=== PATIENT | male | born 1940 | race Caucasian/White ===

== ENCOUNTER 2020-11-01 07:27 | Outpatient (CLI) | payer MEDICARE, BC, SELFPAY ==
--- NOTE | ~2020-11-01 | CT_ITS ---
EXAMINATION: CT BRAIN W/O DATE: 11/01/2020 08:27 INDICATION: Malignant neoplasm of the skin. TECHNIQUE: Computed tomography (CT) of the head was performed without and with 100 cc Omnipaque 350 i ntravenous contrast. The dose-length product was 1210.66 mGy-cm. Automated exposure control and itera tive reconstruction technique were employed. COMPARISON: No prior studies for comparison. FINDINGS: Normal brain parenchymal volume for age. Normal torres-white differentiation. No acute intrac ranial hemorrhage, infarction, mass or mass effect. There are scattered mild periventricular and subc ortical white matter changes, most likely related to small vessel ischemic disease (microangiopathy). No ventriculomegaly or midline shift. Midline sagittal images demonstrate a normal corpus callosum, c raniovertebral junction and sella turcica. Basilar cisterns are patent. There is mild mucosal thickening of the ethmoid and maxillary sinuses. Mastoids are pneumatized. No o steolytic or blastic lesions. IMPRESSION: 1. No acute intracranial abnormality. No evidence for metastases. Reviewed, dictated and finalized at location A.
--- NOTE | ~2020-11-01 | CT_ITS ---
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 TECHNIQUE: Spiral CT of the neck was performed following intravenous injection of 75 mL Omnipaque 350 . Axial, coronal and sagittal images were reviewed. The dose-length product (DLP) for this examinat ion was 542.63 mGy-cm. The exposure was tailored according to patient size (auto mA exposure control ), and iterative reconstruction (ASIR) was used as additional dose reduction technique. There is no prior study for comparison. FINDINGS: The thyroid gland is unremarkable. The submandibular and parotid glands are symmetric. There is no cervical lymphadenopathy. There are no masses identified. The superior mediastinum is unremarkable. The airway is unremarkable. Parapharyngeal and pre-glottic fat planes are preserve d. There is moderate left carotid bulb arterial sclerosis without significant stenosis, mild on the right. Vertebral arteries are codominant. Patient has had bilateral ocular lens surgery. Mild to moderate bilateral ethmoid sinus mucoperiosteal thickening. Small mucoperiosteal retention cysts in t he maxillary sinuses. The mastoid air cells are well aerated. Mild apical emphysema. There is severe disc disease at C5-6 with moderate to severe neural foraminal stenosis, and some advanced left-sided predominant facet arthropathy. IMPRESSION: 1. No evidence of cervical metastatic disease. 2. Chronic findings above. Reviewed, dictated and finalized at location A.
[2020-11-01 08:11] LABS: Estimated Glomerular Filt Rate > 60
== END 2020-11-01 07:28 | disposition home or self-care (01) ==
PROVIDERS: PCP Internal Medicine
DX: C44.90 Unspecified malignant neoplasm of skin, unspecified (principal); M47.812 Spondylosis without myelopathy or radiculopathy, cervical region; M48.02 Spinal stenosis, cervical region; I65.22 Occlusion and stenosis of left carotid artery
CPT/HCPCS: 70470; 70491; Q9967

== ENCOUNTER 2021-06-25 08:39 | Outpatient (CLI) | payer MEDICARE, BC, SELFPAY ==
--- NOTE | ~2021-06-25 | XR_ITS ---
XR UGIAC w barium swallow DATE: 06/25/2021 09:28 INDICATION: Heartburn, acid reflux TECHNIQUE: Air-contrast evaluation of the upper gastrointestinal tract. Rapid sequence radiographs of the esophagus during swallowing. 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 There is a very small sliding hiatal hernia with Schatzki's ring. No stricture, mucosal fold thickening, erosion, ulceration or intraluminal mass lesion of the esophag us, stomach or duodenum is noted otherwise. Status post cholecystectomy. IMPRESSION: Cricopharyngeus dysfunction with small Hook's diverticulum Small sliding hiatal hernia with Schatzki's ring Reviewed, dictated and finalized at Location A. Reviewed, dictated and finalized at location A. ULAR STUFFER
== END 2021-06-25 08:40 | disposition home or self-care (01) ==
LOC: ANHIMG 08:42
PROVIDERS: PCP Internal Medicine; Visit Provider Nurse Practitioner
DX: R12 Heartburn (principal); K22.5 Diverticulum of esophagus, acquired; K44.9 Diaphragmatic hernia without obstruction or gangrene
CPT/HCPCS: 74246

== ENCOUNTER 2021-07-06 09:46 | Outpatient (CLI) | payer MEDICARE, BC, SELFPAY ==
--- NOTE | ~2021-07-06 | XR_ITS ---
EXAMINATION: XR barium swallow modified DATE: 07/06/2021 10:43 INDICATION: Dyskinesia of the esophagus TECHNIQUE: Modified barium esophagram was performed by myself to administered fluoroscopy, in conjun ction with speech pathologist who administered barium in varying consistencies as per speech patholog ist documentation. This was recorded on tape. A single fluoroscopic spot image was recorded. The DAP for this procedure was 1.753 Gycm2. Fluoroscopy exposure time was 2.3 minutes. FINDINGS: Incidental note is made of a small posterior diverticulum of the cervical esophagus. Oral stage: Adequate function. Pharyngeal phase: Adequate function. Laryngeal penetration: None. Aspiration: None. Laryngeal sensitivity: Present. IMPRESSION: No functional abnormality identified. Please refer to speech pathologist findings and [facility] feeding recommendations. Reviewed, dictated and finalized at location A. T ADVISOR IMPRESSION: No functional abnormality identified. Please refer to speech pathol ogist findings and specific feeding recommendations.
--- NOTE | 2021-07-06 11:32 | STOPEVAL ---
MODIFIED BARIUM SWALLOW EVALUATION: Thank you for referring Catarino Lopes to [facility].? ORDERING PROVIDERS: Dr Fay & SCHEDULING ANALYST Amador Tejeda: FAX: [phone] Outpatient Past Medical History Past Medical History Source of Past Medical History Patient Gastrointestinal History Hx Gastroesophageal Reflux Disease Yes Prior Level of Function Prior Swallow Level Prior Intake Method Oral Prior Diet Regular (Level 7 Diet) Prior Liquid Consistency Thin (Level 0 Diet) Prior Cognition/Communication Prior Communication Level No Impairment Prior Cognitive Function Able to Function Independently Pain Assessment Timing of Pain Assessment Timing of Pain Assessment Assessment Self Report Self Report Pain Level 0 Pain Score Pain Score 0: Self Report Modified Barium Swallow Evaluation Recent Swallowing History Reports Dysphagia Yes Onset of Dysphagia 1 month ago History of Dysphagia No History of Pneumonia No Reported Difficult Consistencies Thin Liquids,Solids Intake Method Prior to Swallow Oral Evaluation Diet Prior to Swallow Evaluation Regular, Level 7 Liquid Consistency Prior to Swallow Thin (0) Evaluation Consistency Thin Uncontrolled 1 Other Amount cup and straw Oral Preparatory Symptoms None Oral Phase Symptoms None Pharyngeal Phase Symptoms None Severity of Vallecular Residue None - 0% No Residue Pharyngeal Phase Comments Vallecular residue was mild and cleared with multiple swallows. Cervical/Esophageal Phase Comments Small diverticulum was exhibited near level C6/7-- no retrograde flow and cleared with multiple swallows Solid Consistency Method of Presentation Spoon Oral Preparatory Symptoms None Oral Phase Symptoms None Pharyngeal Phase Symptoms Within Functional Limits, Residue in [place] Severity of Vallecular Residue Mild - 5-25 % Epiglottic Ligament Visable Severity of Pyriform Sinus Residue None - 0% No Residue 8 Point Laryngeal Penetration-Aspiration Material Does Not Enter Airway Scale Pharyngeal Phase Comments Vallecular residue was mild and cleared with multiple swallows. Cervical/Esophageal Phase Comments Small diverticulum was exhibited near level C6/7-- no retrograde flow and cleared with multiple swallows & liquid wash. Pureed Consistency Method of Presentation Spoon Oral Preparatory Symptoms None
== END 2021-07-06 09:47 | disposition home or self-care (01) ==
PROVIDERS: PCP Internal Medicine; Visit Provider Nurse Practitioner
DX: K22.4 Dyskinesia of esophagus (principal)
CPT/HCPCS: 92611

== ENCOUNTER 2021-10-11 16:55 | Emergency (ER) | payer MEDICARE, BC, SELFPAY ==
[2021-10-11 16:59] VITALS: BP 104/79; PULSE 62; RESP 16; TEMP 36.7; O2SAT 99
--- NOTE | 2021-10-11 17:02 | ED.WOUNDLAC ---
HPI - Wound/Laceration General Chief Complaint: Wound/Laceration Stated Complaint: L THUMB LACERATION Time Seen by Provider: 10/11/21 17:05 Source: patient Mode of arrival: ambulatory Limitations: no limitations History of Present Illness HPI narrative: Mr. Lopes is a 81-year-old male patient presenting to the clinic today with complaints of injury to the left thumb around 3:30 PM today. He reports he cut off the tip of his left thumb. He is on a blood thinner and is having difficulty controlling the bleeding. Cut his finger with a knife when he was cutting an onion. His tetanus status is up-to-date. Related Data Home Medications Medication Instructions Recorded Confirmed amlodipine 2.5 mg tablet 2.5 mg PO DAILY 08/17/19 09/24/21 xhbchfkf-kmt-tvhfv acid 300 1 tablet PO DAILY 08/31/20 09/24/21 mcg-lycopene 600 mcg-lutein 300 mcg tablet aspirin 81 mg tablet,delayed 81 mg PO DAILY 03/05/21 09/24/21 release rosuvastatin 20 mg PO DAILY 08/28/21 09/24/21 ticagrelor 90 mg tablet 90 mg PO Q12H 08/28/21 09/24/21 Allergies Allergy/AdvReac Type Severity Reaction Status Date / Time No Known Allergies Allergy Verified 10/11/21 17:02 Review of Systems Review of Systems: Pertinent positives per HPI. Patient denies any fever, chills, rash, headache, visual changes, dizziness, cough, runny nose, sore throat, shortness of breath, chest pain, palpitations, nausea, vomiting, diarrhea, constipation, abdominal pain, or any urinary issues. [facility] Surgical History Surgical History Stented coronary artery July 2021 Family History Family History Mother Patient's mother is in good health Hypertension Family history of arthritis Father Family history of kidney disease Patient's father is Family history of renal failure Cerebrovascular accident Sibling Malignant neoplasm of prostate Social History Social History Smoking packs per day: 1.5 Smoking cigarettes per day: 30.0 Years smoked: 25 Smoking pack-years: 37.50 Smoking status: Former smoker Tobacco type: cigarettes Second hand tobacco smoke exposure: Yes Smoking end date: 08/11/91 Alcohol intake: current Alcohol use details: 2 beers per month Substance use: never Exam Narrative: General: Well-developed, well nourished, in no apparent distress Cardio: Regular rate and rhythm, s1 and s2 normal, no murmur appreciated. Resp: Clear to auscultation bilaterally, no rhonchi, rales, wheezing or rubs. Integumentary: [place], warm, and dry, half-field avulsion laceration to the tip of the left thumb. Small amount of oozing blood noted to the wound. Avulsed skin coagulated and stuck to the wound bed. Nontender to palpation. No redness or swelling. Course Course Level of Care: Express Care Visit MDM - Wound/Laceration Differential Diagnosis Differential diagnosis: Likely laceration, abrasion and avulsion of skin Medical Records Attestation: I reviewed the patient's medical records. Discharge Plan Discharge Clinical Impression: Avulsion of skin Patient Disposition: Home, Self-Care Condition: Stable Additional Instructions: No need for suturing of laceration at this time. Bleeding is controlled. Wound was cleansed and tube gauze pressure dressing was applied in the clinic. Keep dressing on for 24 hours. After 24 hours may remove and wash thumb. Keep left hand elevated if bleeding occurs. Make use ice pack as needed to help control the bleeding. Avoid soaking left thumb. Watch for signs and symptoms of infection. Return to clinic or your PCP if symptoms persist. Prescriptions: No Action amlodipine 2.5 mg tablet 2.5 mg PO DAILY RF: 0 Centrum Silver Men 300-600-300 mcg tablet 1 tablet PO DAILY RF: 0 aspirin [Ad
== END 2021-10-11 17:23 | disposition home or self-care (01) ==
PROVIDERS: Emergency Provider Nurse Practitioner Family; PCP Internal Medicine
DX: S61.002A Unspecified open wound of left thumb without damage to nail, initial encounter (principal); W26.0XXA Contact with knife, initial encounter; Z79.01 Long term (current) use of anticoagulants; Z87.891 Personal history of nicotine dependence
CPT/HCPCS: 99212; G0463

== ENCOUNTER 2021-11-15 11:00 | Outpatient (RCR) | payer MEDICARE, BC, SELFPAY | END 2021-11-15 15:41 | disposition home or self-care (01) | LOC: ANHCPREHAB 11:00 | PROVIDERS: PCP Internal Medicine; Visit Provider Internal Medicine Cardiovascular Disease | DX: Z95.5 Presence of coronary angioplasty implant and graft (principal) | CPT/HCPCS: 93798 ==

== ENCOUNTER 2022-10-14 08:23 | Emergency (ER) | payer MEDICARE, BC, SELFPAY ==
--- NOTE | 2022-10-14 08:36 | ED.GENADULT ---
HPI - General Adult General Chief complaint: Unspecified Stated complaint: Dizziness/High BP/Abdominal Pain Time Seen by Provider: 10/14/22 08:37 Source: patient, RN notes reviewed and old records reviewed Mode of arrival: ambulatory Limitations: no limitations History of Present Illness HPI narrative: 82-year-old male presents to the [facility] with concerns for abdominal pain, dizziness, high blood pressure. Patient states yesterday morning he woke up dizzy but it went away, woke up again this morning dizzy with a pressure in the back of his head. Reports vomiting this morning. 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 States that he takes medication daily for blood pressure and cholesterol Patient denies any chest pain, shortness of breath Onset (ago): day(s) (1) Related Data Home Medications Medication Instructions Recorded Confirmed amlodipine 2.5 mg tablet 2.5 mg PO DAILY 08/17/19 10/08/22 khexrmgz-tkc-jfwds acid 300 1 tablet PO DAILY 08/31/20 10/08/22 mcg-lycopene 600 mcg-lutein 300 mcg tablet (Centrum Silver Men) aspirin 81 mg tablet,delayed 81 mg PO DAILY 03/05/21 10/08/22 release (Adult Low Dose Aspirin) rosuvastatin 20 mg tablet 20 mg PO DAILY 08/28/21 10/08/22 glucosamine 750 mg-msm 125 tablet PO 10/08/22 10/08/22 mg-chondroitin 600 mg-D3 1,000 unit tablet Allergies Allergy/AdvReac Type Severity Reaction Status Date / Time No Known Allergies Allergy Verified 10/14/22 08:48 Review of Systems Review of Systems: All systems reviewed & are unremarkable except as noted in HPI and below Constitutional: Constitutional: Reports no additional constitutional complaints Eyes: Eyes: Reports no additional eye complaints ENT: Reports system reviewed and no additional complaints, except as documented Cardiovascular: Cardiovascular: Reports no additional cardiovascular complaints, Denies chest pain and Denies dyspnea Respiratory: Respiratory: Reports no additional respiratory complaints, Denies chest congestion, Denies cough and Denies dyspnea Gastrointestinal: Gastrointestinal: Reports no additional gastrointestinal complaints, Denies abdominal pain, Denies nausea and Denies vomiting Musculoskeletal: Musculoskeletal: Reports no additional musculoskeletal complaints Integumentary/Breasts: Skin/Breast: Reports system reviewed and no additional complaints, except as docu Neurologic: Reports as per HPI, Denies Abnormal speech present, Denies abnormal gait and Reports dizziness Psychiatric: Psychiatric: Reports no additional psychiatric complaints Allergic/Immunologic: Allergic/Immunologic: Reports no additional allergic/immunologic complaints [facility] Past Medical History Medical History (Updated 10/14/22 @ 09:02 by Ruby Bill APRN) Essential (primary) hypertension History of high blood pressure Hyperlipidemia, unspecified Surgical History Surgical History (Updated 10/14/22 @ 09:00 by Ruby Bill APRN) Stented coronary artery July 2021 Family History Family History Mother Patient's mother is in good health Hypertension Family history of arthritis Father Family history of kidney disease Patient's father is Family history of renal failure Cerebrovascular accident Sibling Malignant neoplasm of prostate Social History Social History Smoking packs per day: 1.5 Smoking cigarettes per day: 30.0 Years smoked: 25 Smoking pack-years: 37.50 Smoking status: Former smoker Tobacco type: cigarettes Second hand tobacco smoke exposure: Yes Smoking end date: 08/11/91 Alcohol intake: current Alcohol use details: 2 beers per month Substance use: never Lack of Transportation: No Lack of Food: Never True Current Housing: I Have Housing Concerned About Future Housing: No Difficulty Paying Gas/Elect
[2022-10-14 08:38] VITALS: BP 140/65; PULSE 48; RESP 14; TEMP 36.4; O2SAT 100
--- NOTE | 2022-10-14 11:30 | ECG_ITS ---
Rate 50 RI 229 QRSd 158 QT 465 QTc 427 --[place]-- P 110 QRS -24 T 153 SINUS BRADYCARDIA WITH FIRST DEGREE AV BLOCK LEFT BUNDLE BRANCH BLOCK BASELINE ARTIFACT- I, II, III, AVR, AVL, V3-V4 ABNORMAL ECG NO PREVIOUS ECG AVAILABLE FOR COMPARISON Electronically Signed On 10-15-2022 8:45:36 MACHINE TRACER by Jean Paul ROCHE
--- NOTE | 2022-10-14 11:30 | ECG_ITS ---
Measurements Intervals [place] Rate: 59 P: ND: 0 QRS: -15 QRSD: 152 T: 148 QT: 440 QTc: 439 Interpretive Statements SINUS BRADYCARDIA WITH MARKED FIRST DEGREE AV BLOCK ATRIAL PREMATURE COMPLEX LEFT BUNDLE BRANCH BLOCK BASELINE ARTIFACT- I, II, III ABNORMAL ECG NO PREVIOUS ECG AVAILABLE FOR COMPARISON Electronically Signed On 10-14-2022 13:17:56 CAN RECONDITIONER by Jean Paul ROCHE
== END 2022-10-14 08:55 | disposition home or self-care (01) ==
PROVIDERS: Emergency Provider Nurse Practitioner; PCP Internal Medicine
DX: R42 Dizziness and giddiness (principal); I10 Essential (primary) hypertension; E78.5 Hyperlipidemia, unspecified; Z87.891 Personal history of nicotine dependence
CPT/HCPCS: 93005; 99213; G0463

== ENCOUNTER 2022-10-14 09:11 | Emergency (ER) | payer MEDICARE, BC, SELFPAY ==
--- NOTE | ~2022-10-14 | CT_ITS ---
EXAMINATION: CT brain wo con DATE: 10/14/2022 12:59 INDICATION: Headache, dizziness for one day. Posterior neck stiffness. TECHNIQUE: Computed tomography (CT) of the head was performed without intravenous contrast. The mA wa s adjusted according to patient size. Iterative reconstruction technique was employed. Exam dose: 60 5.33 mGy-cm total exam DLP. COMPARISON: 10/28/2020 CT brain without and with IV contrast material FINDINGS: Bilateral vertebral and basilar artery calcification. Bilateral carotid siphon internal car otid artery calcifications. There is nonspecific diminished attenuation of the cerebral white matter, likely due to chronic small vessel ischemic changes. No intracranial mass lesion or hemorrhage or cerebrovascular accident is evident. No midline shift or mass effect. No subdural or epidural hematoma. Patchy soft tissue opacification of bilateral ethmoid air cells. Small mucous retention cyst or polyp in the posterior left maxillary sinus. Minimal mucoperiosteal thickening of the right maxillary and sphenoid sinuses, left frontal sinus. The mastoid air cells are normally developed and aerated bilaterally. No fracture or bone destruction of the cranial vault. IMPRESSION: Cerebral atherosclerosis and chronic small vessel ischemic changes of the cerebral white matter; no acute intracranial finding Reviewed, dictated and finalized at Location A. Reviewed, dictated and finalized at location B. BORER
--- NOTE | ~2022-10-14 | XR_ITS ---
EXAMINATION: XR chest 1V portable DATE: 10/14/2022 13:07 INDICATION: Intermittent weakness. Dizziness. TECHNIQUE: A single frontal view of the chest was obtained on 2 radiographs. COMPARISON: CT abdomen and pelvis 11/21/2014 FINDINGS: There is mild atelectasis in right lower lung zone. No pleural effusion or pneumothorax. Ca rdiomegaly is noted. IMPRESSION: 1. Mild atelectasis in right lower lung zone. 2. Cardiomegaly. Reviewed, dictated and finalized at location A. ERN ROOM OPERATOR
--- NOTE | ~2022-10-14 | CT_ITS ---
EXAMINATION: CT cervical spine wo con DATE: 10/14/2022 12:59 INDICATION: Neck pain. TECHNIQUE: Computed tomography (CT) of the cervical spine was performed without intravenous contrast. Automated exposure control and iterative reconstruction technique were employed. The dose-length pro duct was 240.27 mGy-cm. COMPARISON: None FINDINGS: There is mild emphysema. There is 2 mm anterolisthesis of C3 on C4 and C6 on C7. Vertebral body heights are normal. There is severely decreased disc height at C5-C6. The following disc levels are specifically discussed: C2-C3: There is mild bilateral uncovertebral joint osteoarthritis. There is moderate right and severe left facet joint osteoarthritis. There is mild left neural foraminal stenosis. There is no central c anal stenosis. C3-C4: There is mild right and severe left uncovertebral joint osteoarthritis. There is severe bilate ral facet joint osteoarthritis. There is mild right and moderate left neural foraminal stenosis. Ther e is mild central canal stenosis. C4-C5: There is mild bilateral uncovertebral joint osteoarthritis. There is severe bilateral facet subhash int osteoarthritis. There is mild left neural foraminal stenosis. There is mild central canal stenosi s. C5-C6: There is severe bilateral uncovertebral joint osteoarthritis. There is moderate bilateral face t joint osteoarthritis. There is mild bilateral neural foraminal stenosis. There is mild central vannesa l stenosis. C6-C7: There is mild right and severe left uncovertebral joint osteoarthritis. There is severe bilate ral facet joint osteoarthritis. There is mild left neural foraminal stenosis. There is mild central c anal stenosis. C7-T1: There is mild bilateral uncovertebral joint osteoarthritis. There is mild bilateral facet join t osteoarthritis. There is no neural foraminal stenosis. There is no central canal stenosis. IMPRESSION: 1. No fracture. 2. Severe cervical spondylosis. Reviewed, dictated and finalized at location A. CASE MAKER
[2022-10-14 09:27] VITALS: BP 144/74; PULSE 74; RESP 16; TEMP 36.6; O2SAT 100
--- NOTE | 2022-10-14 12:26 | ECG_ITS ---
Measurements Intervals [place] Rate: 59 P: SC: 0 QRS: -15 QRSD: 152 T: 148 QT: 440 QTc: 439 Interpretive Statements SINUS BRADYCARDIA WITH MARKED FIRST DEGREE AV BLOCK ATRIAL PREMATURE COMPLEX LEFT BUNDLE BRANCH BLOCK BASELINE ARTIFACT- I, II, III ABNORMAL ECG NO PREVIOUS ECG AVAILABLE FOR COMPARISON Electronically Signed On 10-14-2022 13:17:56 IT QUALITY ANALYST by Jean Paul ROCHE
[2022-10-14 12:52] LABS: Basophils Percent Auto 0.5 % (0.2-1.2); Eosinophils Absolute Auto 0.2 K/mm3 (0-0.3); Eosinophils Percent Auto 2.2 % (0-4.4); Hematocrit 48.3 % (42.0-52.0); Hemoglobin 16.3 g/dL (14.0-18.0); Immature Granulocyte Absolute 0.03 K/mm3 (0.00-0.031); Immature Granulocyte Percent A 0.3 % (0-0.5); Lymphocytes Absolute Auto 1.19 K/mm3 (0.9-3.2); Lymphocytes Percent Auto 13.5 % (18.3-44.2); Mean Corpuscular HGB Conc 33.7 g/dl (32-36); Mean Corpuscular Hemoglobin 31.8 pg (26-34); Mean Corpuscular Volume 94.2 fl (80-100); Mean Platelet Volume 10.9 fl (7.4-10.4); Monocytes Absolute Auto 0.2 K/mm3 (0.1-0.6); Monocytes Percent Auto 2.6 % (2.6-8.5); Neutrophils Absolute Auto 7.1 K/mm3 (1.3-6.7); Neutrophils Percent Auto 80.9 % (45.5-73.1); Platelet Count Result 185 k/mm3 (150-375); Red Blood Count 5.13 M/mm3 (4.6-6.20); Red Cell Distribution Width 12.8 % (11.5-14.5); White Blood Count 8.8 K/mm3 (4.5-10.0)
[2022-10-14 12:55] LABS: Appearance Urine Cloudy (Clear); Bacteria Urine None Seen /hpf; Bilirubin Urine Negative (Negative); Blood Urine Negative (Negative); Color Urine Yellow (Yellow); Glucose Urine UA Negative (Negative); Ketones Urine Negative (Negative); Leukocyte Esterase Ur Negative LEU/UL (Negative); Nitrate Urine Negative (Negative); Non Pathogenic Casts 0-2; Protein Urine Negative (Negative); RBC Urine 0-2 /hpf (0-2); Specific Grav Ur 1.015 (1.001-1.035); Squamous Epithelial Cell Urine None seen /hpf (Few); Urobilinogen Urine 0.2 mg/dL (<2.0); WBC Urine 0-5 /hpf
[2022-10-14 13:01] LABS: INR 1.1; Prothrombin Time 13.5 Seconds (11.1-14.7)
[2022-10-14 13:02] LABS: Partial Thromboplastin Time 33.6 SECONDS (22.3-36.8)
[2022-10-14 13:03] LABS: Alanine Aminotransferase 46 U/L (6-50); Albumin Level 5.3 g/dL (3.5-5.1); Alkaline Phosphatase 62 U/L (38-126); Anion Gap 8 mmol/L (8-16); Aspartate Amino Transferase 38 U/L (17-59); Bilirubin,Total 1.2 mg/dL (0.2-1.3); Blood Urea Nitrogen 19 mg/dL (9-20); Calcium 9.3 mg/dL (8.4-10.2); Carbon Dioxide 32 mmol/L (22-30); Chloride 103 mmol/L (98-107); Estimated CRCL calculation 77 ml/min; Estimated Glomerular Filt Rate > 60; Glucose 105 mg/dL (65-110); Magnesium 2.4 mg/dL (1.6-2.3); Potassium 3.9 mmol/L (3.4-5.0); Sodium 143 mmol/L (137-145)
--- NOTE | 2022-10-14 13:12 | ED.DIZZY ---
HPI - Dizziness General Chief Complaint: Dizziness Stated Complaint: dizziness since yesterday morning Time Seen by Provider: 10/14/22 12:14 Source: patient, RN notes reviewed and old records reviewed Mode of arrival: ambulatory Limitations: no limitations History of Present Illness HPI Narrative: This is an 82 year old male with history of hypertension, CAD, s/p stent who presents for evaluation of dizziness. Patient reports he has had cold symptoms since Friday. He reports nasal congestion. Yesterday he noticed dizziness, room spinning when he got up yesterday morning. He reports his symptoms only last minutes and it resolved. He developed dizziness, spinning again this morning and he states it has not resolved. He also reports mild dull aching headache located posterior and frontal. He reports he fell last week and he has had neck pain/ stiffness since that fall, but he denies hitting his head. He had an episode of nausea and vomiting this morning with his dizziness. He denies ringing in his ears or ear ache. He denies fever or chills. His states she is worried patient is having a heart attack because she had a friend that presented with vomiting and she had a heart attack. Patient denies chest pain, sob or palpitations. He states he had stent placed because he had shortness of breath with exertion at that time but he is not having similar symptoms today. 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 He denies diplopia, focal weakness, numbness or tingling. Related Data Home Medications Medication Instructions Recorded Confirmed amlodipine 2.5 mg tablet 2.5 mg PO DAILY 08/17/19 10/14/22 juedszmu-ziu-mfskg acid 300 1 tablet PO DAILY 08/31/20 10/14/22 mcg-lycopene 600 mcg-lutein 300 mcg tablet (Centrum Silver Men) aspirin 81 mg tablet,delayed 81 mg PO DAILY 03/05/21 10/14/22 release (Adult Low Dose Aspirin) rosuvastatin 20 mg tablet 20 mg PO DAILY 08/28/21 10/14/22 glucosamine 750 mg-msm 125 1 tablet PO DAILY 10/08/22 10/14/22 mg-chondroitin 600 mg-D3 1,000 unit tablet Allergies Allergy/AdvReac Type Severity Reaction Status Date / Time No Known Allergies Allergy Verified 10/14/22 08:48 Review of Systems Constitutional: Constitutional: Denies weakness ENT: Reports vertigo and Reports nasal congestion Cardiovascular: Cardiovascular: Denies syncope, Denies rapid heart rate, Denies irregular heart rhythm, Denies leg edema and Denies dyspnea Respiratory: Respiratory: Denies chest congestion, Denies hemoptysis, Denies excessive phlegm production and Denies dyspnea Gastrointestinal: Gastrointestinal: Denies abdominal pain, Denies hematochezia, Denies diarrhea, Reports nausea and Reports vomiting Genitourinary: Genitourinary: Denies hematuria, Denies dysuria, Denies penile discharge and Denies testicular pain Musculoskeletal: Musculoskeletal: Denies joint swelling, Denies loss of height and Denies muscle weakness Neurologic: Reports vertigo, Denies syncope, Reports headache(s), Denies focal weakness and Denies weakness PMFSH Past Medical History Medical History (Updated 10/14/22 @ 14:40 by Annmarie Ambriz MD) Essential (primary) hypertension History of high blood pressure Hyperlipidemia, unspecified Surgical History Surgical History (Updated 10/14/22 @ 09:00 by Ruby Bill APRN) Stented coronary artery July 2021 Family History Family History Mother Patient's mother is in good health Hypertension Family history of arthritis Father Family history of kidney disease Patient's father is Family history of renal failure Cerebrovascular accident Sibling Malignant neoplasm of prostate Social History Social History Smoking packs per day: 1.5 Smoking cigarettes per day: 30.0 Years smoked: 25 Smoking pack-years: 37.50 Smoking status: Former smok
[2022-10-14 13:14] LABS: Troponin I < 0.012 ng/mL (0.000-0.034)
[2022-10-14 13:23] LABS: Add Urine Microscopic? YES
[2022-10-14 13:25] LABS: Influenza A QL RT-PCR Negative (Negative); Influenza B QL RT-PCR Negative (Negative); SARS-CoV-2 RNA PCR Negative
[2022-10-14] MEDS: MECLIZINE HCL 12.5 MG TABLET PO (13:36)
[2022-10-14] MEDS: ONDANSETRON INJ 4 MG/2 ML VIAL IV PUSH (13:36)
[2022-10-14 14:20] VITALS: BP 130/69; BP 141/82; BP 143/76; PULSE 50; PULSE 56; PULSE 60
== END 2022-10-14 15:12 | disposition home or self-care (01) ==
PROVIDERS: Emergency Provider General Practice; PCP Internal Medicine
DX: J06.9 Acute upper respiratory infection, unspecified (principal); R42 Dizziness and giddiness; I10 Essential (primary) hypertension; E78.5 Hyperlipidemia, unspecified; M47.812 Spondylosis without myelopathy or radiculopathy, cervical region; I44.7 Left bundle-branch block, unspecified; Z87.891 Personal history of nicotine dependence; Z79.82 Long term (current) use of aspirin; Z95.5 Presence of coronary angioplasty implant and graft; Z20.822 Contact with and (suspected) exposure to COVID-19
CPT/HCPCS: 36415; 70450; 71045; 72125; 80053; 81001; 81003; 83735; 84484; 85025; 85610; 85730; 87636; 93005; 96374; 99284; A9270; J2405

== ENCOUNTER 2023-08-20 10:27 | Outpatient (CLI) | payer MEDICARE, BC, SELFPAY ==
--- NOTE | ~2023-08-20 | XR_ITS ---
XR lumbar spine 2-3V DATE: 08/20/2023 10:49 INDICATION: Right low back pain, right lower extremity radiculopathy TECHNIQUE: Standing AP, lateral and coned lateral lumbosacral views COMPARISON: None FINDINGS: There is mild lumbar dextroscoliosis. There is moderate to moderately severe degenerative disc disease of the lumbar spine, relatively spar ing L5-S1. No fracture or bone destruction. The included lower thoracic and lumbar pedicles are intact. No spond ylolisthesis. The sacroiliac joints are intact. Status post cholecystectomy. Prominent abdominal aortic calcification without evidence of aneurysm. IMPRESSION: Moderate to moderately severe degenerative disease of the lumbar spine, relatively sparin g L5-S1 Reviewed, dictated and finalized at location B. BOX OPERATOR IMPRESSION: Moderate to moderately severe degenerative disease of the lumbar sp ine, relatively sparing L5-S1
== END 2023-08-20 10:28 | disposition home or self-care (01) ==
PROVIDERS: PCP Family Medicine; Visit Provider Family Medicine
DX: M51.36 Other intervertebral disc degeneration, lumbar region (principal)
CPT/HCPCS: 72100

== ENCOUNTER 2023-10-02 07:51 | Outpatient (CLI) | payer MEDICARE, BC, SELFPAY | END 2023-10-02 07:52 | disposition home or self-care (01) | LOC: ANHAUDIO 07:52 | PROVIDERS: PCP Family Medicine; Visit Provider Family Medicine | DX: H90.3 Sensorineural hearing loss, bilateral (principal) | CPT/HCPCS: 92557; 92567 ==

== ENCOUNTER 2023-10-23 10:20 | Outpatient (CLI) | payer MEDICARE, BC, SELFPAY ==
--- NOTE | ~2023-10-23 | XR_ITS ---
AP and lateral views of the right tibia/fibula Clinical History: Pain Findings: No acute fracture or dislocation is seen. Osseous alignment is anatomic. Right knee arthrop lasty in place, without evidence of a convocation. Joint spaces of the ankle are intact.. Soft tissue s are unremarkable. Impression: No acute abnormality. Right knee arthroplasty. Reviewed, dictated and finalized at location . Impression: No acute abnormality. Right knee arthroplasty.
--- NOTE | ~2023-10-23 | XR_ITS ---
Right Knee Technique: AP, lateral, and sunrise views were obtained. Clinical History: Pain Findings: No fracture or dislocation is seen. Right hip arthroplasty in place, without evidence of shin rdware complication. Soft tissues are unremarkable. No joint effusion is seen. Impression: No acute abnormality. Right knee arthroplasty. Reviewed, dictated and finalized at location . Impression: No acute abnormality. Right knee arthroplasty.
== END 2023-10-23 10:21 | disposition home or self-care (01) ==
LOC: ANHIMG 10:21
PROVIDERS: PCP Family Medicine; Visit Provider Family Medicine
DX: M89.8X6 Other specified disorders of bone, lower leg (principal); M25.561 Pain in right knee
CPT/HCPCS: 73562; 73590

== ENCOUNTER 2024-08-05 09:01 | Emergency (ER) | payer MEDICARE, BC, SELFPAY ==
[2024-08-05 09:08] VITALS: BP 144/79; PULSE 56; RESP 16; TEMP 36.6; O2SAT 100
[2024-08-05 09:27] LABS: EDSTREPNEGPOS1 Negative (Negative)
--- NOTE | 2024-08-05 09:32 | ED_ITS ---
HPI - URI/Sore Throat General Chief Complaint: Upper Respiratory Infection Stated Complaint: sorethroat Time Seen by Provider: 08/05/24 09:32 Source: patient, RN notes reviewed and old records reviewed Mode of arrival: ambulatory Limitations: no limitations History of Present Illness HPI Narrative: 84-year-old male presents to the [facility] with complaints of a sore throat. Patient states sore throat started Friday, reports swollen glands. States 3 weeks ago he had some sinus issues that has resolved. Pain increased over night. Treatments prior to arrival: other (An aspirin) Related Data Home Medications ?Medication ?Instructions ?Recorded ?Confirmed ?Last Taken ?Type amlodipine 2.5 mg tablet 2.5 mg PO DAILY 08/17/19 08/05/24 Unknown History xezvkjwx-sk-hcosh 300 mcg-K 60 1 tablet PO DAILY 08/31/20 08/05/24 Unknown History mcg-lycop 600 mcg-lutein 300 mcg tablet (Centrum Silver Men) aspirin 81 mg tablet,delayed 81 mg PO DAILY 03/05/21 08/05/24 Unknown History release (Adult Low Dose Aspirin) rosuvastatin 20 mg tablet 20 mg PO DAILY 08/28/21 08/05/24 Unknown History Allergies Allergy/AdvReac Type Severity Reaction Status Date / Time No Known Allergies Allergy Verified 08/05/24 09:16 Review of Systems Review of Systems: All systems reviewed & are unremarkable except as noted in HPI and below Constitutional: Constitutional: Reports no additional constitutional complaints ENT: Reports as per HPI and Reports sore throat Cardiovascular: Cardiovascular: Reports no additional cardiovascular complaints, Denies chest pain and Denies dyspnea Respiratory: Respiratory: Reports no additional respiratory complaints, Denies chest congestion, Denies cough and Denies dyspnea Musculoskeletal: Musculoskeletal: Reports no additional musculoskeletal complaints Integumentary/Breasts: Skin/Breast: Reports system reviewed and no additional complaints, except as docu PMFSH Past Medical History Medical History Chronic sinusitis History of high blood pressure Essential (primary) hypertension Hyperlipidemia, unspecified Surgical History Surgical History Stented coronary artery July 2021 Family History Family History Mother Patient's mother is in good health Hypertension Family history of arthritis Father Family history of kidney disease Patient's father is Family history of renal failure Cerebrovascular accident Sibling Malignant neoplasm of prostate Social History Social History Social History: Caffeine-daily Smoking packs per day: 1.5 Smoking cigarettes per day: 30.0 Years smoked: 25 Smoking pack-years: 37.50 Smoking status: Former smoker Tobacco type: cigarettes Second hand tobacco smoke exposure: Yes Smoking end date: 08/11/86 Alcohol intake: current Alcohol use details: 2 beers per month Substance use: never Lack of Transportation: No Lack of Food: Never True Current Housing: I Have Housing Concerned About Future Housing: No Difficulty Paying Gas/Electric Bills: No Difficulty Paying for Meds: No Currently Unemployed: No Education: Bachelor's Degree Difficulty w/ Childcare or Family Care: No Spiritual care concerns: No Agree to blood products: Yes Comments At the time of my signature, I reviewed and agree with the nursing past medical, surgical, social, and family history. There is no relevant family history pertinent to the patient complaint. Exam Const: General: cooperative, healthy appearing, comfortable, no acute distress, well developed, alert and well nourished Nutritional Appearance: well nourished Orientation/consciousness: patient oriented x3 Limitations: no limitations HENMT: Head: normal to inspection Ears: hearing grossly normal bilaterally, external ears normal, TM's normal bilaterally, EAC's normal, mastoids normal and no periauricular adenopathy Face/Nose/Sinus: normal facial exam and face symmetric Face and sinus: normal facial exam and face symmetric Throat: tonsils normal, uvula midline, posterior oropharynx abnormal erythema; no edema and no exudates, postnasal drainage and uvular edema (mild swelling with erythema) Eyes: General: appearance normal, both eyes and all related structures Neck: Neck: normal visual inspection, full ROM, no lymphadenopathy and no meningeal signs Chest: Chest palpation & inspection: normal inspection of the chest Resp: Effort & Inspection: normal respiratory effort and able to speak in complete sentences Auscultation: clear to auscultation bilaterally, no crackles, no rales, no rhonchi and no wheezes Cardio: Rate: regular rate Skin: General skin exam: normal color and no rashes or lesions noted Neuro: General: patient oriented x3, gait normal, moves all extremities and no meningeal signs Cognition (Neuro): normal cognition Speech: normal speech Gait exam (Neuro): Normal gait present Extrem: General: normal to inspection, full ROM, capillary refill normal and normal gait Psych: Appearance: grossly normal and well kempt Mental Status: mental status grossly normal Speech and movement: Normal speech and movement present and Clear speech present Affect: normal affect Attitude: cooperative Course Course Level of Care: Express Care Visit Vital Signs Vital signs: Vital Signs Temperature 97.9 F 08/05/24 09:08 Pulse Rate 56 L 08/05/24 09:08 Respiratory Rate 16 08/05/24 09:08 Blood Pressure 144/79 H 08/05/24 09:08 Pulse Oximetry 100 08/05/24 09:08 Oxygen Delivery Room Air 08/05/24 09:08 Temperature 97.9 F 08/05/24 09:08 Pulse Rate 56 L 08/05/24 09:08 Respiratory Rate 16 08/05/24 09:08 Blood Pressure 144/79 H 08/05/24 09:08 Pulse Oximetry 100 08/05/24 09:08 Oxygen Delivery Room Air 08/05/24 09:08 Reviewed MDM - URI/Sore Throat MDM Narrative Medical decision making narrative: Patient sitting in exam room. Nontoxic vitals stable patient presents with sore. Uvula is mildly swollen erythema treat with and steroid with strict signs and symptoms go emergency which patient verbalized understanding Discharge instructions reviewed with patient, as well as provided in writing per nursing staff. The instructions also include specific and strict return/GO TO THE ER as well as f/u information. All questions have been answered, and the patient deny any further questions with discharge and discharge plan. Some parts of this dictation were generated by voice recognition software and may contain typographical and/or grammatical inaccuracies. Differential Diagnosis Differential diagnosis: Likely upper respiratory infection, otitis media, sinusitis, viral infection and pharyngitis Lab Data Labs: Lab Results 08/05/24 Range/Units 09:13 POC Grp A Strep Screen Negative (Negative) Reviewed Critical Care Time Critical Care Time Critical Care Time: No Discharge Plan Discharge Clinical Impression: Uvulitis Patient Disposition: Home, Self-Care Condition: Stable Instructions: Antibiotic Form, Uvulitis (ED) Additional Instructions: Use water gargles. Take antibiotics and steroids as prescribed Follow-up with primary care provider If for some reason anything gets worse please go directly to the emergency room Patient Language: Greenlandic Prescriptions: New prednisone 20 mg tablet See Rx Instructions .Route .COMPLEX Qty: 18 0RF Rx Instructions: Take 60 mg daily for 3 days, 40 mg daily for 3 days, 20 mg daily for 3 days amoxicillin-pot clavulanate 875-125 mg tablet 1 tablet PO Q12H Qty: 20 0RF No Action amlodipine 2.5 mg tablet 2.5 mg PO DAILY cholecalciferol (vitamin D3) 1,250 mcg (50,000 unit) capsule 1,250 mcg PO MONTHLY Qty: 7 1RF fluticasone propionate [Flonase Allergy Relief] 50 mcg/actuation spray, suspension 2 spray intranasal DAILY Qty: 18 1RF Rx Instructions: administer into each nostril Centrum Silver Men 300-600-300 mcg tablet 1 tablet PO DAILY aspirin [Adult Low Dose Aspirin] 81 mg tablet,delayed release (DR/EC) 81 mg PO DAILY rosuvastatin 20 mg Tablet 20 mg PO DAILY Follow-up/Referrals: Ramiro Dunlap MD [Primary Care Provider] - 2 Weeks ([facility] follow up ) Time of Disposition: 09:45
== END 2024-08-05 09:50 | disposition home or self-care (01) ==
PROVIDERS: Emergency Provider Nurse Practitioner; PCP Family Medicine
DX: K12.2 Cellulitis and abscess of mouth (principal); I10 Essential (primary) hypertension; E78.5 Hyperlipidemia, unspecified; Z95.5 Presence of coronary angioplasty implant and graft; Z79.82 Long term (current) use of aspirin
CPT/HCPCS: 87081; 87880; 99213; G0463

== ENCOUNTER 2024-11-10 09:38 | Outpatient (CLI) | payer MEDICARE, BC, SELFPAY ==
--- NOTE | ~2024-11-10 | XR_ITS ---
Right Knee Technique: AP, lateral, and sunrise views were obtained. Clinical History: Pain Findings: No fracture or dislocation is seen. Right knee arthroplasty in place, without evidence of c omplication.. Soft tissues are unremarkable. No joint effusion is seen. Impression: No acute abnormality. Right knee arthroplasty in place. Reviewed, dictated and finalized at location M. Impression: No acute abnormality. Right knee arthroplasty in place.
--- OUTSIDE RECORDS SUMMARY | 2024-11-10 10:26 | XMS_ITS | Clinical Summary ---
Author Organization [facility] Address [address] [place] [address] Care Team Providers Care Smoke Tester Name Role Phone Martinez Pierson MD Primary Care Provider [phone] Source Comments [facility],non-owned Affiliates and Associated Physician Practices is amultiple site organization consisting of ambulatory clinics and hospital sitesin [place], [place], [place] and [place]. This disclosure is being madepursuant to the Care Everywhere program and may not contain all information available regarding this patient. Last updated 18.[facility] Encounters Date Type Department Care Team Description 08/24/[address] [facility] - DermPath Lab [address] [place] [id number] Amber [place] MD from Last 3 Months Social History Tobacco Use Types Packs/Day Years Used Date Smoking Tobacco: Never Assessed Sex and Gender Information Value Date Recorded Sex Assigned at Not on file Gender Identity Not on file Sexual Orientation Not on file Plan of Treatment Health Maintenance Due Date Last Done Comments MEDICARE AWV 12 MONTHS 1941 DTAP/TDAP/TD VACCINES (1 - Tdap) 01/27/1960 PNEUMOCOCCAL VACCINE 50+ (1 of 1 - PCV) 1991 ZOSTER VACCINE (1 of 2) 1991 Respiratory Syncytial Virus (RSV) Vaccine Pt: or over 60 yrs (1 - 1-dose 75+ series) 01/27/2016 COVID-19 VACCINE ( - 2023-2 5 season) 2024 INFLUENZA VACCINE (#1) 2024 DEPRESSION SCREENING 08/11/2024 HEPATITIS B VACCINE Aged Out No longe r eligible based on patient's age to complete this topic HIB VACCINE Aged Out No longer eligi ble based on patient's age to complete this topic HPV VACCINE Aged Out No longer eligi ble based on patient's age to complete this topic MENINGOCOCCAL (Group B) VACC INE SHARED DECISION-MAKING Aged Out No longer eligibl e based on patient's age to complete this topic MENINGOCOCCAL GROUPS A/C/Y/W VACCINE Aged Out No longer eligible b ased on patient's age to complete this topic Procedures Procedure Name Priority Date/Time Associated Diagnosis Comments DERMATOPATHOLOGY Routine 08/24/2024 1:19 PM GLUE MOUNTER OPERATOR from Last 3 Months Results * DERMATOPATHOLOGY (08/24/2024 1:19 PM GLUE MOUNTER OPERATOR) Case Report Dermatopathology Report Case: [id number] Authorizing Provider: Amber [place] MD Collected: 08/24/2024 01:19 PM Ordering Location: [facility] - Received: 08/25/2024 12:50 PM DermPath Lab Pathologist: Luba Burnett MD Specimen: Skin, left post shoulder 3:03 PM GLUE MOUNTER OPERATOR DERMATOPATHOLOGY LABORATORY Final Diagnosis Specimen A. SKIN, left post shoulder: DERMAL SCAR RESIDUAL SQUAMOUS CELL CARCINOMA NOT IDENTIFIED (L90.5) 3:03 PM [facility] DERMATOPATHOLOGY LABORATORY Clinical History Bx Proven SCCIS. Check margins/prior biopsy 3:03 PM [facility] DERMATOPATHOLOGY LABORATORY Gross Description Specimen A: Received is one formalin filled container labeled with the patient's name and designated left post shoulder.The specimen consists of an ellipse measuring [id number] mm and is oriented with the notch at the 12 o'clock position labeled on the requisition as notch. The 12 to 6 o'clock margin is inked green. The 6 o'clock to 12 o'clock margin is inked red. The 12 o'clock tip is submitted in cassette 1. The 6 o'clock tip is submitted in cassette 2. The remainder of the ellipse is serially sectioned and submitted in cassettes 3-6. Jar 0. 3:03 PM GLUE MOUNTER OPERATOR DERMATOPATHOLOGY LABORATORY Microscopic Description Specimen A. SKIN, left post shoulder: There are fibroblasts and collagen bundles oriented parallel to the skin surface. There are elongated blood vessels, some of which are oriented perpendicular to the skin surface. No residual squamous cell carcinoma is identified. 5 3:03 PM [facility] DERMATOPATHOLOGY LABORATORY Disclaimer An external and internal positive and negative controls are appropriate for the histochemical, immunohistochemical and immunofluorescence stain(s) in this case (if any), except where stated explicitly. The performance characteristics of the stain(s) cited in this report were developed and its performance characteristic determined by the Dermatopathology Laboratory at [facility], directed by Dr. Agata Vargas. These tests need not be, and therefore are not, approved by the [place] Food and Drug Administration. The tests are used for clinical purposes. Billing Codes Specimen Charges Stain Charges 32587 1 5 3:03 PM GLUE MOUNTER OPERATOR DERMATOPATHOLOGY LABORATORY Embedded Images 5 3:03 PM [facility] DERMATOPATHOLOGY LABORATORY Pathology/Cytolo gy TISSUE SPECIMEN FROM SKIN / Unknown 08/24/2024 1:19 PM GLUE MOUNTER OPERATOR 08/25/2024 12:50 PM GLUE MOUNTER OPERATOR Amber [place] MD LAB - PATHOLOGY/CYTO LOGY ORDERABLES DERMATOPATHOLOGY LABORATORY [facility] - Department of Dermatology [facility] Medicine [address] [place] [address], [address] [phone] from Last 3 Months Care Teams Smoke Tester Relationship Specialty Start Date End Date Martinez Pierson MD [address] [place] [id number] PCP - General 12/20/14
--- OUTSIDE RECORDS SUMMARY | 2024-11-10 10:26 | XMS_ITS | Continuity of Care Document ---
Author Organization [facility] Address [address] [place] [address] Phone Care Team Providers Care Back Tender Pulp Drier Name Role Phone Steven Myers Unavailable Unavailable Procedures Procedure Date Post-op Follow-up Visit Post-op Follow-up Visit Remove Cataract, Insert Lens PreOp Assessment Performed Presbyopia Correcting IOL Post-op Follow-up Visit IOLMaster-Professional Post-op Follow-up Visit Remove Cataract, Insert Lens PreOp Assessment Performed Presbyopia Correcting IOL Office/outpatient Visit, Est IOLMaster Office/outpatient Visit, Est No Script Office/outpatient Visit, Est No Script Office/outpatient Visit, Est Eye Exam & Treatment Refraction Office/outpatient Visit, Est Advance Directives Directive Yes / No Effective Date File Name No Information Encounters Encounter Description Practice Location Reason(s) For Visit Diagnoses Date Provider Providers Copied on Encounter [facility], [address], [place], [place], [id number], [place] tel:[phone] [facility] No Information 7201 0 Lucia Harris. [address], [place], [address], [place]. tel:[phone] [facility], [address], [place], [place], [address], [place] tel:[phone] [facility] No Information Henok-2 3-201 0 Doirich Edduy. [address] , [address], [place], [place], [facility], . tel:[phone] [facility], [address] [place] [address] [address], [place], [place], [address], [place] tel:[phone] [facility] No Information Jan-2 2-201 0 Lucia Edduy. [address] , [address], [place], [place], [facility], [place]. tel:[phone] [facility], [address], [place], [place], [address], [place] tel:[phone] [facility] No Information 2 6-201 0 Lucia Edduy. [facility] [address] , [address], [place], [facility], [place]. tel:[phone] Referring Provider: Steven Bianchi, [address] [place], [place] [address], [place], [facility]. tel:[phone] [facility], [address], [place], [place], [address], [place] tel:[phone] [facility] No Information December- 2-201 0 Lucia Edduy. [facility] [address] , [address], [place], [facility], [place]. tel:[phone] [facility], [address], [place], [place], [address], [place] tel:[phone] [facility] No Information December-1 1-201 0 Lucia Edduy. [address], [address], [place], [facility], [place]. tel:[phone] Office/outpat ient Visit, [facility], [address], [place], [place], [address], [place] tel:[phone] [facility] No Information 9-201 0 Lucia Harris. [address] , [address], [place], [facility], . tel:[phone] Referring Provider: Steven Bianchi, [address] [place], [place] [address], [place], [place], [facility]. tel:[phone] Office/outpat ient Visit, [facility], [address], [place], [place], [address], [place] tel:[phone] [facility] No Information 9200 9 Lucia Edduy. [address] , [address], [place], [facility], . tel:[phone] Office/outpat ient Visit, [facility], [address], [place], [place], [address], [place] tel:[phone] [facility] No Information 9200 9 Lucia Harris. [facility] [address] , [address], [place], [facility], [place]. tel:[phone] Office/outpat ient Visit, [facility], [address], [place], [place], [address], [place] tel:[phone] [facility] No Information 8-200 8 Lucia Edduy. [address] , [address], [place], [address], [place]. tel:[phone] [facility], [address], [place], [place], [address], [place] tel:[phone] [facility] No Information 9-200 8 Lucia Harris. [address] [facility] , [address], [place], [address], [place]. tel:[phone] Office/outpat ient Visit, [facility], [address], [place], [place], [address], [place] tel:[phone] [facility] No Information 200 7 Lucia Harris. [address] [facility] , [address], [place], [address], [place]. tel:[phone] Family History Family Member Type Diagnosis Age At Onset No Information Payers Payer name Insurance type Covered republican ID Authoriza tion(s) No Information Social History Type Description Quantity Date Captured Comments Sex Male Smoking Status No Information Chief Complaint And Reason For Visit No Information Reason For Referral Reason For Referral No Information History Of Present Illness Encounter Date Complaint History Of Prese nt Illness No Information Functional Status Date Functional Assessmen t No Information Instructions Date Instruction Additional Infor mation No Information Assessments Type Assessment Date No Information Patient Care Teams Name Effective Dates (start - stop) Status Members No Information
--- OUTSIDE RECORDS SUMMARY | 2024-11-10 10:26 | XMS_ITS | Referral Summary ---
Author Organization [facility] Address [address] [place] [address] Care Team Providers Care Orthophotography Technician Name Role Phone Gatito Burnett MD Unavailable [phone] Ramiro Dunlap MD Primary Care Provider [phone] Allergies No known active allergies Medications multivitamin tablet tablet take 1 Tablet by oral route every day with food 0 0 5 Active aspirin 81 mg chewable tablet take 1 Tablet by oral route every day 0 0 5 Active glucosamine-ch ondroit-vit C-Mn (GLUCOSAMINE 1500 COMPLEX) 500-400 mg capsule take 2 Capsule by Oral route once per day 0 0 5 Active montelukast (SINGULAIR) 10 mg tablet Take 1 tablet (10 mg total) by mouth daily 4 Active cholecalcifero l (VITAMIN D-3) 50,000 unit capsule Take 1 capsule (50,000 Units total) by mouth every 30 (thirty) days 4 Active amLODIPine (NORVASC) 2.5 mg tablet Take 1 tablet by mouth once daily 90 tablet 3 4 Active rosuvastatin (CRESTOR) 20 mg tablet TAKE 1 TABLET DAILY 90 tablet 3 5 Active rosuvastatin (CRESTOR) 20 mg tablet Take 1 tablet (20 mg total) by mouth daily 90 tablet 3 4 11/10/19 25 Discontinued Active Problems Problem Noted Date Diagnosed Date Hyperlipidemia 08/20/2021 Assessment & Plan (08/20/2021 12:55 PM GRAIN ELEVATOR AGENT): He has a history of mild dyslipidemia. He has never previously been treated. With the finding of coronary artery disease, will begin rosuvastatin 20 mg daily. CAD (coronary artery disease) 08/07/2021 Assessment & Plan (08/20/2021 12:56 PM GRAIN ELEVATOR AGENT): Asymptomatic following obtuse marginal PCI. Continue aspirin 81 mg daily and Brilinta 90 mg b.i.d.. He understands that the Brilinta will be for one year. Return appointment in six months. In light of my prison, will schedule with Dr. Castillo. Chest tightness 08/01/2021 Overview (08/01/2021): Added automatically from request for surgery [id number] Essential hypertension 02/22/2019 Assessment & Plan (08/20/2021 12:55 PM GRAIN ELEVATOR AGENT): Blood pressure is well controlled on amlodipine 2.5 mg daily which he should continue. Assessment & Plan (02/27/2021 12:54 PM CDT): Blood pressure is adequately controlled on current regimen. No change was made. Assessment & Plan (02/22/2019 8:14 AM CDT): Blood pressure is adequately controlled on current regimen. No change was made. LBBB (left bundle branch block) 02/22/2019 Assessment & Plan (08/20/2021 12:56 PM GRAIN ELEVATOR AGENT): Left bundle branch block is longstanding and nonischemic. It has not affected left ventricular contractility. Assessment & Plan (02/27/2021 12:55 PM CDT): Previously evaluated and found to be nonischemic. Ejection fraction is normal. Assessment & Plan (02/22/2019 8:14 AM CDT): Nonischemic. Asymptomatic. Non-rheumatic mitral regurgitation 02/15/2019 Assessment & Plan (02/27/2021 12:54 PM CDT): [id number], not progressed since 2019. It is not heard on exam. Assessment & Plan (02/22/2019 8:14 AM CDT): Mild to moderate when last assessed. Will obtain an echo Doppler in one year. Immunizations Immunization Administration Dates Next Due Pfizer SARS-CoV-2 Monovalent Vaccination (12+ Yrs) PURPLE 10/26/2020,10/05/2020 Social History Tobacco Use Types Packs/Day Years Used Date Smoking Tobacco: Former Smokeless Tobacco: Never Tobacco Cessation:Counseling Given: Not Answered Alcohol Use Standard Drinks/Week Comments Yes 0 (1 standard drink = 0.6 oz pur e alcohol) AUDIT-C Answer Date Recorded Q1: How often do you have a drink containing alc ohol? Monthly or less 08/07/2021 Average Number of Drinks Not on file 021 Frequency of Binge Drinking Not on file 07/12 Exercise Vital Sign Answer Date Recorde d On average, how many days pe r week do you engage in moderate to strenuous exercise (like a brisk walk)? 4 days 04/23/2022 On average, how many minutes do you engage in exercise at this level? 40 min 04/23/2022 Sex and Gender Information Value Date Recorded Sex Assigned at Not on file Legal Sex Male 2:18 AM GRAIN ELEVATOR AGENT Gender Identity Not on file Sexual Orientation Not on file Occupation Industry Job Start Date Job End Date Retired Not on file Not on file Not on file Last Filed Vital Signs Vital Sign Reading Time Taken Comments Blood Pressure 116/70 07/20/2024 1:04 PM GRAIN ELEVATOR AGENT Pulse 70 07/20/2024 1:04 PM GRAIN ELEVATOR AGENT Temperature 36.7 C (98 F) 08/08/2021 7:55 AM GRAIN ELEVATOR AGENT Respiratory Rate 18 08/08/2021 7:55 AM GRAIN ELEVATOR AGENT Oxygen Saturation 96% 07/20/2024 1:04 PM GRAIN ELEVATOR AGENT Inhaled Oxygen Concentration - - Weight 76.2 kg (168 lb) 07/20/2024 1:04 PM GRAIN ELEVATOR AGENT Height 170.2 cm (5' 7 ) 07/20/2024 1:04 PM GRAIN ELEVATOR AGENT Body Mass Index 26.31 07/20/2024 1:04 PM GRAIN ELEVATOR AGENT Plan of Treatment Not on file Medical Devices Implanted Type Area Park Landscape Architect Device Identifier Shelf Expiration Date Model / Serial / Lot [employer] [id number] Synergy Xd Monorail 3mm 32mm 144cm Delivery System 1 Access Port - S1 - [id number] Implanted:Qty: 1 on 08/07/2021 by Rafael Hamilton DO at [facility] Stent N/A: Coronary [employer] Stanford 04/17/2023 [id number] / 1 / [id number] Description:ADDY prox circ Insurance MEDICARE [facility] MEDICARE [facility] FEDERAL Advance Directives For more information, please contact: [phone] * Full Code (Latest Code Status on File) Date Activated Date Inactivated Comments 08/07/2021 10:31 AM 08/08/2021 3:16 PM Care Teams Orthophotography Technician Relationship Specialty Start Date End Date Ramiro Dunlap MD [address] [place] [address] PCP - General Family Practice 07/20/24 Gatito Burnett MD [address] [facility] [address] [place] [address] Bilingual Sales Consultant Cardiology 04/23/22
--- OUTSIDE RECORDS SUMMARY | 2024-11-10 10:26 | XMS_ITS | Clinical Summary ---
Author Organization [facility] Address [address] [place] [address] Care Team Providers Care Household Cook Name Role Phone Gatito Burnett MD Unavailable [phone] Ramiro Dunlap MD Primary Care Provider [phone] Allergies No known active allergies Medications multivitamin [...] 08/20/2021 Assessment & Plan (08/20/2021 12:55 PM DRY KILN BURNER): He has a history of mild dyslipidemia. He has never previously been treated. With the finding of coronary artery disease, will begin rosuvastatin 20 mg daily. CAD (coronary artery disease) 08/07/2021 Assessment & Plan (08/20/2021 12:56 PM DRY KILN BURNER): Asymptomatic following obtuse marginal PCI. Continue aspirin 81 mg daily and Brilinta 90 mg b.i.d.. He understands that the Brilinta will be for one year. Return appointment in six months. In light of my custodial, will schedule with Dr. Castillo. Chest tightness 08/01/2021 Overview (08/01/2021): Added automatically from request for surgery [id number] Essential hypertension 02/22/2019 Assessment & Plan (08/20/2021 12:55 PM DRY KILN BURNER): Blood pressure is well controlled on amlodipine [...] 02/22/2019 Assessment & Plan (08/20/2021 12:56 PM DRY KILN BURNER): Left bundle branch block is longstanding and nonischemic. It has not affected left ventricular contractility. Assessment & Plan (02/27/2021 12:55 PM CDT): Previously evaluated and found to be nonischemic. Ejection fraction is normal. Assessment & Plan (02/22/2019 8:14 AM CDT): Nonischemic. Asymptomatic. Non-rheumatic mitral regurgitation 02/15/2019 Assessment & Plan (02/27/2021 12:54 PM CDT): [id number], not progressed since 2019. It is not heard on exam. Assessment & Plan (02/22/2019 8:14 AM CDT): Mild to moderate when last assessed. Will obtain an echo Doppler in one year. Immunizations Immunization Administration Dates Next Due Pfizer SARS-CoV-2 Monovalent Vaccination (12+ Yrs) PURPLE 10/26/2020,10/05/2020 Surgical History Surgery Date Site/Laterality Comments CATARACT EXTRACTION CHOLECYSTECTOMY REPLACEMENT TOTAL KNEE Right CARDIAC STENT PLACEMENT 08/07/2021 PCI to Obtuse Marginal CARDIAC CATHETERIZATION 08/07/2021 Medical History Medical History Date Comments Essential hypertension CAD (coronary artery disease) 07/2021 Non-rheumatic mitral regurgitation LBBB (left bundle branch block) Chest tightness Hyperlipidemia Family History Relation Name Status Comments Father Maternal Grandfather Maternal Grandmother Mother Paternal Grandfather Paternal Grandmother Social History Tobacco Use Types Packs/Day Years [...] on file Legal Sex Male 2:18 AM DRY KILN BURNER Gender Identity Not on file Sexual Orientation Not on file Occupation Industry Job Start Date Job End Date Retired Not on file Not on file Not on file Obstetrics History Last Filed Vital Signs Vital Sign Reading Time Taken Comments Blood Pressure 116/70 07/20/2024 1:04 PM DRY KILN BURNER Pulse 70 07/20/2024 1:04 PM DRY KILN BURNER Temperature 36.7 C (98 F) 08/08/2021 7:55 AM DRY KILN BURNER Respiratory Rate 18 08/08/2021 7:55 AM DRY KILN BURNER Oxygen Saturation 96% 07/20/2024 1:04 PM DRY KILN BURNER Inhaled Oxygen Concentration - - Weight 76.2 kg (168 lb) 07/20/2024 1:04 PM DRY KILN BURNER Height 170.2 cm (5' 7 ) 07/20/2024 1:04 PM DRY KILN BURNER Body Mass Index 26.31 07/20/2024 1:04 PM DRY KILN BURNER Plan of Treatment Health Maintenance Due Date Last Done Comments Depression Screening 1941 DTaP/Tdap/Td Vaccine (1 - Tdap) 01/27/1952 Hepatitis B Screening 1959 Pneumococcal vaccine 65+ (1 of 1 - PCV) 1991 Zoster Vaccine (1 of 2) 1991 Well Visit 65+ 2006 Fall Risk Assessment 08/08/2022 08/08/2021 Covid-19 Vaccine ( season) 2024, 10/05/2020 Influenza Vaccine (Season Ended) 2025 Medical Devices Implanted Type Area Boot And Saddle Repair Person Device Identifier Shelf Expiration Date Model / Serial / Lot [employer] [id number] Synergy Xd Monorail 3mm 32mm 144cm Delivery System 1 Access Port - S1 - [id number] Implanted:Qty: 1 on 08/07/2021 by Rafael Hamilton, DO at [facility] Stent N/A: Coronary [employer] 04/17/2023 [id number] / 1 / [id number] Description:ADDY prox circ Insurance MEDICARE [facility] [place] [address] [place] [address] MEDICARE [facility] FEDERAL Advance Directives For more information, please contact: [phone] * Full Code (Latest Code Status on File) Date Activated Date Inactivated Comments 08/07/2021 10:31 AM 08/08/2021 3:16 PM Care Teams Household Cook Relationship Specialty Start Date End Date Ramiro Dunlap MD [address] [place] [address] PCP - General Family Practice 07/20/24 Gatito Burnett MD [address] [address] Car Repairman Cardiology 04/23/22
--- OUTSIDE RECORDS SUMMARY | 2024-11-10 10:27 | XMS_ITS | Encounter Summary ---
Author Organization [facility] Address [address] [facility] [address] [address] Care Team Providers Care Burglary Investigator Name Role Phone Martinez Pierson MD Primary Care Provider [phone] Encounter Details Date Type Department Care Team (Late st Contact Info) Description 04/14/2024 Lab Requisition [facility] - DermPath Lab [address] [facility] [place] [address] Brianne Tinajero MD [address] [facility] [address] [place] [address] Social History Tobacco Use Types Packs/Day Years Used Date Smoking Tobacco: Never Assessed Sex and Gender Information Value Date Recorded Sex Assigned at Not on file Gender Identity Not on file Sexual Orientation Not on file documented as of this encounter Plan of Treatment Not on file documented as of this encounter Procedures Procedure Name Priority Date/Time Associated Diagnosis Comments DERMATOPATHOLOGY Routine 04/14/2024 1:28 PM CDT documented in this encounter Results * DERMATOPATHOLOGY (04/14/2024 1:28 PM CDT) Case Report Dermatopathology Report Case: [id number] Authorizing Provider: Brianne Tinajero MD Collected: 04/14/2024 01:28 PM Ordering Location: [facility] - Received: 04/16/2024 07:27 AM DermPath Lab Pathologist: Jackie Jo MD Specimens: A) - Skin, left upper arm B) - Skin, right elbow 2:58 PM CDT DERMATOPATHOLOGY LABORATORY Final Diagnosis Specimen A. SKIN, left upper arm: SEBORRHEIC KERATOSIS, RETICULATED (ADENOID) TYPE (L82.1) Specimen B. SKIN, right elbow: BENIGN VERRUCOUS KERATOSIS (L82.1) 4 2:58 PM T DERMATOPATHOLOGY LABORATORY Clinical History A: Nevus r/o atypia B: ISK vs SC vs VV 2:58 PM T DERMATOPATHOLOGY LABORATORY Gross Description Specimen A: Received is one formalin filled container labeled with the patient's name and designated left upper arm. The specimen consists of a shave biopsy measuring 11x7x1 mm. Jar 0. Specimen B: Received is one formalin filled container labeled with the patient's name and designated right elbow. The specimen consists of a shave biopsy measuring 57o74u6 mm. Jar 0. 2:58 PM [facility] DERMATOPATHOLOGY LABORATORY Microscopic Description Specimen A. SKIN, left upper arm: There is reticulated hyperplasia of the epidermis with overlying delicate hyperorthokeratosis . Hyperpigmentation is present in the basaloid cells. Specimen B. SKIN, right elbow: Sections show hyperkeratosis, papillomatosis, hypergranulosis, and acanthosis. These histological findings can be seen in a verruca vulgaris or a seborrheic keratosis. 2:58 PM T DERMATOPATHOLOGY LABORATORY Disclaimer An external and internal positive and negative controls are appropriate for the histochemical, immunohistochemical and immunofluorescence stain(s) in this case (if any), except where stated explicitly. The performance characteristics of the stain(s) cited in this report were developed and its performance characteristic determined by the Dermatopathology Laboratory at [facility], directed by Dr. Agata Vargas. These tests need not be, and therefore are not, approved by the [place] Food and Drug Administration. The tests are used for clinical purposes. Billing Codes Specimen Charges Stain Charges 70852 05406 1 1 4 2:58 PM CDT DERMATOPATHOLOGY LABORATORY Embedded Images 2:58 PM CDT DERMATOPATHOLOGY LABORATORY Pathology/Cytology TISSUE SPECIMEN FROM SKIN / Unknown 04/14/2024 1:28 PM CDT 04/16/2024 7:27 AM CDT Miscellaneous samples (specimen) TISSUE SPECIMEN FROM SKIN / Unknown 04/14/2024 1:28 PM CDT 04/16/2024 7:27 AM CDT Brianne Tinjaero MD LAB - PATHOLOGY/CYT OLOGY ORDERABLES DERMATOPATHOLOGY LABORATORY [facility] - Department of Dermatology [facility] [address] [place] [address], [address] [phone] documented in this encounter Visit Diagnoses Not on filedocumented in this encounter Care Teams Burglary Investigator Relationship Specialty Start Date End Date Martinez Pierson MD [address] [facility] [address] [place] [address] PCP - General 12/20/14 documented as of this encounter
--- OUTSIDE RECORDS SUMMARY | 2024-11-10 10:27 | XMS_ITS | Encounter Summary ---
Author Organization [facility] Address [address] [place] [address] Care Team Providers Care Environmental Department Manager Name Role Phone Martinez Pierson MD Primary Care Provider [phone] Encounter Details Date Type Department Care Team (Late st Contact Info) Description 04/26/2024 Lab Requisition [facility] - DermPath Lab [address] [facility], [facility] [place] [address] Brianne Tinajero MD [address] [facility] [address] [place] [address] Social History Tobacco Use Types Packs/Day Years Used Date Smoking Tobacco: Never Assessed Sex and Gender Information Value Date Recorded Sex Assigned at Not on file Gender Identity Not on file Sexual Orientation Not on file documented as of this encounter Plan of Treatment Not on file documented as of this encounter Procedures Procedure Name Priority Date/Time Associated Diagnosis Comments DERMATOPATHOLOGY Routine 04/26/2024 11:2 5 AM CDT documented in this encounter Results * DERMATOPATHOLOGY (04/26/2024 11:25 AM CDT) Case Report Dermatopathology Report Case: [id number] Authorizing Provider: Brianne Tinajero MD Collected: 04/26/2024 11:25 AM Ordering Location: [facility] - Received: 04/27/2024 12:24 PM DermPath Lab Pathologist: Jackie Jo MD Specimen: Skin, right mid helix 12:05 PM CDT DERMATOPATHOLOGY LABORATORY Final Diagnosis Specimen A. SKIN, right mid helix: HYPERPLASTIC (HYPERTROPHIC) ACTINIC KERATOSIS WITH FOLLICULAR EXTENSION (L57.0) 12:05 PM CDT DERMATOPATHOLOGY LABORATORY Clinical History CNH vs AK, R/O NMSC 4 12:05 PM CDT DERMATOPATHOLOGY LABORATORY Gross Description Specimen A: Received is one formalin filled container labeled with the patient's name and designated right mid helix. The specimen consists of a shave biopsy measuring 6x4x1 mm. Jar 0. 4 12:05 PM CDT DERMATOPATHOLOGY LABORATORY Microscopic Description Specimen A. SKIN, right mid helix: There is hyperkeratosis alternating with parakeratosis. There is epidermal hyperplasia with disorderly maturation of keratinocytes with nuclear pleomorphism confined to the lower half of the epidermis and the follicular infundibulum. 4 12:05 PM CDT DERMATOPATHOLOGY LABORATORY Disclaimer An external and internal positive and negative controls are appropriate for the histochemical, immunohistochemical and immunofluorescence stain(s) in this case (if any), except where stated explicitly. The performance characteristics of the stain(s) cited in this report were developed and its performance characteristic determined by the Dermatopathology Laboratory at [facility], directed by Dr. Agata Vargas. These tests need not be, and therefore are not, approved by the [place] Food and Drug Administration. The tests are used for clinical purposes. Billing Codes Specimen Charges Stain Charges 78392 1 4 12:05 PM CDT DERMATOPATHOLOGY LABORATORY Embedded Images 4 12:05 PM CDT DERMATOPATHOLOGY LABORATORY Pathology/Cytolo gy TISSUE SPECIMEN FROM SKIN / Unknown 04/26/2024 11:25 AM CDT 04/27/2024 12:24 PM CDT Brianne Tinajero MD LAB - PATHOLOGY/CYT OLOGY ORDERABLES DERMATOPATHOLOGY LABORATORY [facility] - Department of Dermatology [facility] Medicine [address] [place] [address], 3rd Floor [place], [place] [id number] [place] [address] documented in this encounter Visit Diagnoses Not on filedocumented in this encounter Care Teams Environmental Department Manager Relationship Specialty Start Date End Date Martinez Pierson MD [address] [facility] [address] [place] [address] PCP - General 12/20/14 documented as of this encounter
--- OUTSIDE RECORDS SUMMARY | 2024-11-10 10:27 | XMS_ITS | Encounter Summary ---
Author Organization [facility] Address [address] [facility] [place] [address] Care Team Providers Care Fat Purification Worker Name Role Phone Martinez Pierson MD Primary Care Provider [phone] Encounter Details Date Type Department Care Team (Late st Contact Info) Description 08/24/2024 Lab Requisition [facility] - DermPath Lab [address] [facility] [place] [address] Amber Lucas MD [address] [facility] 3 [place] [address] Social History Tobacco Use Types Packs/Day Years [...] Diagnosis Comments DERMATOPATHOLOGY Routine 08/24/2024 1:19 PM SOCIAL WELFARE CLERK documented in this encounter Results * DERMATOPATHOLOGY (08/24/2024 1:19 PM SOCIAL WELFARE CLERK) Case Report Dermatopathology Report Case: [id number] Authorizing Provider: Amber Lucas MD Collected: 08/24/2024 01:19 PM Ordering Location: [facility] - Received: 08/25/2024 12:50 PM DermPath Lab Pathologist: Luba Burnett MD Specimen: Skin, left post shoulder 5 3:03 PM SOCIAL WELFARE CLERK DERMATOPATHOLOGY LABORATORY Final Diagnosis Specimen A. SKIN, left post shoulder: DERMAL SCAR RESIDUAL SQUAMOUS CELL CARCINOMA NOT IDENTIFIED (L90.5) 5 3:03 PM SOCIAL WELFARE CLERK DERMATOPATHOLOGY LABORATORY Clinical History Bx Proven SCCIS. Check margins/prior biopsy 3:03 PM [facility] DERMATOPATH[facility]Y LABORATORY Gross Description Specimen A: Received is one formalin filled container labeled with the patient's name and designated left post shoulder.The specimen consists of an ellipse measuring 96o06b7 mm and is oriented with the notch [...] in cassettes 3-6. Jar 0. 3:03 PM [facility] DERMATOPATHOLOGY LABORATORY Microscopic Description Specimen A. SKIN, left post shoulder: There are fibroblasts and collagen bundles oriented parallel to the skin surface. There are elongated blood vessels, some of which are oriented perpendicular to the skin surface. No residual squamous cell carcinoma is identified. 3:03 PM [facility] DERMATOPATHOLOGY LABORATORY Disclaimer An external and internal positive and negative controls are appropriate for the histochemical, immunohistochemical and immunofluorescence stain(s) in this case (if any), except where stated explicitly. The performance characteristics of the stain(s) cited in this report were developed and its performance characteristic determined by the Dermatopathology Laboratory at [facility], directed by Dr. Agata Vargas. These tests need not be, and therefore are not, approved by the [place] Food and Drug Administration. The tests are used for clinical purposes. Billing Codes Specimen Charges Stain Charges 90741 1 3:03 PM [facility] DERMATOPATH[facility]Y LABORATORY Embedded Images 3:03 PM [facility] DERMATOPATH[facility]ATORY Pathology/Cytolo gy TISSUE SPECIMEN FROM SKIN / Unknown 08/24/2024 1:19 PM SOCIAL WELFARE CLERK 08/25/2024 12:50 PM [facility] Amber Lucas MD LAB - PATHOLOGY/CYTO LOGY ORDERABLES DERMATOPATHOLOGY LABORATORY [facility] - Department of Dermatology [address], [address] [phone] documented in this encounter Visit Diagnoses Not on filedocumented in this encounter Care Teams Fat Purification Worker Relationship Specialty Start Date End Date Martinez Pierson MD [address] [facility] [address] [facility] [address] [place] [address] PCP - General 12/20/14 documented as of this encounter
--- OUTSIDE RECORDS SUMMARY | 2024-11-10 10:27 | XMS_ITS | Encounter Summary ---
Author Organization [facility] Address [address] [place] [address] Care Team Providers Care Wet Press Tender Name Role Phone Martinez Pierson MD Primary Care Provider [phone] Encounter Details Date Type Department Care Team (Late st Contact Info) Description 07/28/[address] [facility] - DermPath Lab [address] [facility], [facility] [place] [address] Brianne Tinajero MD [address] [facility] [address] [place] [address] Social History Tobacco Use Types Packs/Day Years Used Date Smoking Tobacco: Never Assessed Sex and Gender Information Value Date Recorded Sex Assigned at Not on file Gender Identity Not on file Sexual Orientation Not on file documented as of this encounter Plan of Treatment Not on file documented as of this encounter Procedures Procedure Name Priority Date/Time Associated Diagnosis Comments DERMATOPATHOLOGY Routine 07/28/2024 8:59 AM FIREARMS ASSEMBLY SUPERVISOR documented in this encounter Results * DERMATOPATHOLOGY (07/28/2024 8:59 AM FIREARMS ASSEMBLY SUPERVISOR) Case Report Dermatopathology Report Case: [id number] Authorizing Provider: Brianne Tinajero MD Collected: 07/28/2024 08:59 AM Ordering Location: [facility] - Received: 07/29/2024 01:06 PM DermPath Lab Pathologist: Bernie Burnett MD Specimen: Skin, left post shoulder 11:58 AM FIREARMS ASSEMBLY SUPERVISOR DERMATOPATHOLOGY LABORATORY Final Diagnosis Specimen A. 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 The specimen consists of a shave biopsy measuring 7x7x2 mm. Jar 0. 11:58 AM [facility] DERMATOPATHOLOGY LABORATORY Microscopic Description Specimen A. SKIN, left post shoulder: The epidermis is acanthotic and shows full thickness disorderly maturation of keratinocytes, mitoses at different levels, and dyskeratotic cells. There is overlying parakeratosis and hyperkeratosis. The lesion extends to the base of the biopsy. COMMENT: An invasive squamous cell carcinoma cannot be ruled out. 11:58 AM [facility] DERMATOPATHOLOGY LABORATORY Disclaimer An external and internal positive and negative controls are appropriate for the histochemical, immunohistochemical and immunofluorescence stain(s) in this case (if any), except where stated explicitly. The performance characteristics of the stain(s) cited in this report were developed and its performance characteristic determined by the Dermatopathology Laboratory at [facility], directed by Dr. Agata Vargas. These tests need not be, and therefore are not, approved by the [place] Food and Drug Administration. The tests are used for clinical purposes. Billing Codes Specimen Charges Stain Charges 62739 1 11:58 AM [facility] DERMATOPATHOLOGY LABORATORY Embedded Images 11:58 AM [facility] DERMATOPATHOLOGY LABORATORY Pathology/Cytolo gy TISSUE SPECIMEN FROM SKIN / Unknown 07/28/2024 8:59 AM FIREARMS ASSEMBLY SUPERVISOR 07/29/2024 1:06 PM FI[employer]AR[employer] ASSEMBL[employer] SUPERVISOR Brianne Tinajero MD LAB - PATHOLOGY/CYT OLOGY ORDERABLES DERMATOPATHOLOGY LABORATORY [facility] - Department of Dermatology Formerly [facility] Medicine [address] [place] [address], [address] [phone] documented in this encounter Visit Diagnoses Not on filedocumented in this encounter Care Teams Wet Press Tender Relationship Specialty Start Date End Date Martinez Pierson MD [address] [facility] [address] [place] [address] PCP - General 12/20/14 documented as of this encounter
--- OUTSIDE RECORDS SUMMARY | 2024-11-10 10:27 | XMS_ITS | Encounter Summary ---
Author Organization [facility] Address [address] [place] [address] Care Team Providers Care Hand Candy Dipper Name Role Phone Martinez Pierson MD Primary Care Provider [phone] Encounter Details Date Type Department Care Team (Late st Contact Info) Description 04/01/2019 Lab Requisition [facility] DermPath Lab [address] [facility], [facility] [place] [phone] Brianne Tinajero MD [address] [facility] [address] [place] [address] Social History Tobacco Use Types Packs/Day Years Used Date Smoking Tobacco: Never Assessed Sex and Gender Information Value Date Recorded Sex Assigned at Not on file Gender Identity Not on file Sexual Orientation Not on file documented as of this encounter Plan of Treatment Not on file documented as of this encounter Procedures Procedure Name Priority Date/Time Associated Diagnosis Comments DERMATOPATHOLOGY Routine 03/31/2019 12:0 0 AM CDT documented in this encounter Results * DERMATOPATHOLOGY (03/31/2019 12:00 AM CDT) Case Report Dermatopathology Report Case: [id number] Authorizing Provider: Brianne Tinajero MD Collected: 03/31/2019 12:00 AM Ordering Location: [facility] DermPath Lab Received: 04/01/2019 09:23 AM Pathologist: Toshia Vargas MD Specimen: Skin, left shoulder superior 9 2:23 PM CDT DERMATOPATHOLOGY LABORATORY Addendum 1 MART-1 immunohistochemistr y was performed and showed two distinct lesions and sparing of the suprapapillary plate in the lentiginous nevus. 9 2:23 PM CDT DERMATOPATHOLOGY LABORATORY Addendum electronically signed by Toshia Vargas MD on 04/28/2019 at 2:23 PM Final Diagnosis Specimen A. 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 The specimen consists of a shave biopsy measuring 9x8x2 mm. Jar 0. 2:23 PM CDT DERMATOPATHOLOGY LABORATORY Microscopic Description Specimen A. SKIN, left shoulder superior: This is a junctional nevus. There is melanin pigment in the stratum corneum. There is architectural disorder characterized by a lentiginous proliferation of melanocytes between irregular nests of cells along the dermal-epidermal junction. There is underlying fibroplasia of the papillary dermis. (Junctional Deon's Nevus or Junctional Dysplastic Nevus) There are nests of cytologically bland melanocytes within the dermis that mature with depth. 2:23 PM CDT DERMATOPATHOLOGY LABORATORY Disclaimer An external and internal positive and negative controls are appropriate for the histochemical, immunohistochemical and immunofluorescence stain(s) in this case (if any), except where stated explicitly. The performance characteristics of the stain(s) cited in this report were developed and its performance characteristic determined by the Dermatopathology Laboratory at [facility], directed by Dr. Agata Vargas. These tests need not be, and therefore are not, approved by the [place] Food and Drug Administration. The tests are used for clinical purposes. Billing Codes Specimen Charges Stain Charges 55682 1 58050 1 2:23 PM CDT DERMATOPATHOLOGY LABORATORY Embedded Images 2:23 PM CDT DERMATOPATHOLOGY LABORATORY Pathology/Cytolog y TISSUE SPECIMEN FROM SKIN / Unknown 03/31/2019 04/01/2019 9:23 AM CDT Brianne Tinajero MD LAB - PATHOLOGY/CYT OLOGY ORDERABLES DERMATOPATHOLOGY LABORATORY [facility] - Department of Dermatology [address] [facility], 5th Floor Lab [address] [phone] documented in this encounter Visit Diagnoses Not on filedocumented in this encounter Care Teams Hand Candy Dipper Relationship Specialty Start Date End Date Martinez Pierson MD [address] [facility] [address] [place] [address] PCP - General 12/20/14 documented as of this encounter
== END 2024-11-10 09:39 | disposition home or self-care (01) ==
PROVIDERS: PCP Family Medicine; Visit Provider Family Medicine
DX: M25.561 Pain in right knee (principal)
CPT/HCPCS: 73562